=== PATIENT | female | born 1975 | race Hispanic/Latino ===

== ENCOUNTER 2018-01-08 11:04 | Emergency (ER) | payer SELFPAY ==
[~2018-01-08] VITALS: Ht 162.6 cm; Wt 127.0 kg
[2018-01-08] MEDS ORDERED: MORPHINE SULFATE 2 MG/ML SYR IV NR (11:15)
[2018-01-08] MEDS ORDERED: ONDANSETRON HCL INJ 2 MG/ML VIAL IV NR (11:15)
[2018-01-08] MEDS ORDERED: SODIUM CHLORIDE 0.9% 1000ML 1,000 ML IV STA (11:16)
[2018-01-08 11:30] LABS: BASOPHILS # (AUTO) 0.1 (0.0-0.1); BASOPHILS % 0.5 % (0.0-1.0); EOSINOPHILS # (AUTO) 0.1 (0.0-0.4); HEMATOCRIT 42.1 % (34.2-44.1); HEMOGLOBIN 13.5 g/dL (12.0-16.0); LYMPHOCYTES # (AUTO) 1.7 (1.0-3.2); LYMPHOCYTES % 12.9 % (18.0-39.1); MEAN CORPUSCULAR HEMOGLOBIN 27.3 pg (28-32); MEAN CORPUSCULAR HGB CONC 32.1 g/dL (31-35); MEAN CORPUSCULAR VOLUME 85.1 fL (81-99); MONOCYTES % 7.3 % (4.4-11.3); NEUTROPHILS # (AUTO) 10.2 (2.1-6.9); PLATELET COUNT 91 x10e3/uL (140-360); RED BLOOD COUNT 4.95 x10e6/uL (3.6-5.1); RED CELL DISTRIBUTION WIDTH 14.6 % (11.7-14.4)
[2018-01-08 11:33] LABS: CLARITY,URINE SL CLOUDY (CLEAR); COLOR,URINE ORANGE (YELLOW); LEUKOCYTE ESTERASE ,URINE 1+ (NEGATIVE)
[2018-01-08 11:34] LABS: KETONES,URINE NEGATIVE (NEGATIVE); NITRITE,URINE POSITIVE (NEGATIVE); PROTEIN,URINE DIPSTICK 2+ (NEGATIVE)
[2018-01-08 11:36] LABS: BILIRUBIN,URINE NEGATIVE (NEGATIVE); PREGNANCY TEST, URINE NEGATIVE (NEGATIVE); URINE UROBILINOGEN 1 mg/dL (0.2 - 1)
[2018-01-08 11:52] LABS: ALBUMIN 3.6 g/dL (3.5-5.0); ALBUMIN/GLOBULIN RATIO 0.8 (0.8-2.0); CALCIUM 9.8 mg/dL (8.4-10.2); CREATININE, SERUM 1.04 mg/dL (0.57-1.11)
[2018-01-08] MEDS ORDERED: CEFTRIAXONE SOD 1 GM VIAL IM ONE (12:00)
[2018-01-08 12:04] LABS: RBC,URINE 21-50 /HPF (0-5); WBC,URINE (MAN) 21-50 /HPF (0-5)
[2018-01-08 12:05] LABS: BACTERIA,URINE MODERATE /HPF; EPITHELIAL CELLS,URINE FEW /LPF; MUCUS,URINE FEW (RARE)
[2018-01-08] MEDS ORDERED: KETOROLAC30 MG/1 M1 IV (12:07)
[2018-01-08] MEDS ORDERED: KETOROLAC TROMETHAMINE 30 MG/ML VIAL IV STA (12:22)
--- NOTE | 2018-01-08 14:36 | Diagnostic Imaging Report ---
EXAM: CT Abdomen and Pelvis WITHOUT contrast INDICATION: \S\back pain \[id number] \S\1320 COMPARISON: None. TECHNIQUE: Abdomen and pelvis were scanned utilizing a multidetector helical scanner from the lung base to the pubic symphysis without administration of IV contrast. Absence of intravenous contrast decreases sensitivity for detection of focal lesions and vascular pathology. Coronal and sagittal reformations were obtained. Routine protocol was performed. IV CONTRAST: None ORAL CONTRAST: Water COMPLICATIONS: None RADIATION DOSE: Total DLP: 892.6 mGy*cm Estimated effective dose: (DLP x 0.015 x size factor) mSv CTDIvol has been reviewed. It is below the limits set by the Radiation Protocol Committee (RPC). FINDINGS: LINES and TUBES: None. LOWER THORAX: Unremarkable HEPATOBILIARY: Hepatic steatosis. Liver is enlarged measuring 20 cm in length and the mid right clavicular line. No focal hepatic lesions. No biliary ductal dilation. GALLBLADDER: Absent SPLEEN: No splenomegaly. PANCREAS: No focal masses or ductal dilatation. ADRENALS: No adrenal nodules KIDNEYS/URETERS: No hydronephrosis. No cystic or solid mass lesions. Punctate nonobstructing left inferior pole calculus. GI TRACT: No abnormal distention, wall thickening, or evidence of bowel obstruction. Appendix is normal. PELVIC ORGANS/BLADDER: Hysterectomy.Left ovarian 2.6 cm fluid attenuating lesion likely representing a cyst. Unremarkable bladder. LYMPH NODES: No lymphadenopathy. VESSELS: Unremarkable. PERITONEUM / RETROPERITONEUM: No free air or fluid. BONES: There are degenerative changes in the lumbar spine, worse at L5-S1. SOFT TISSUES: Fat-containing supraumbilical hernia with 6.9 x 3.5 x 11.7 cm sac. Neck measures 2 x 3.5 cm and located approximately 7 cm above the umbilicus. Tiny fat-containing umbilical hernia. No fluid or stranding to suggest strangulation. IMPRESSION: 1. No acute abnormalities in the abdomen and pelvis. 2. Hepatic steatosis and hepatomegaly. 3. Left nephrolithiasis. 4. Large fat containing supraumbilical ventral hernia. Signed by: DR. Felix Lowe MD on 01/08/2018 2:32 PM
[2018-01-08] MEDS ORDERED: KEFLEX500 MG PO (15:18)
[2018-01-08] MEDS ORDERED: ULTRAM50 MG PO (15:47)
[2018-01-08] MEDS ORDERED: PYRIDIUM100 MG PO (15:49)
[2018-01-09] MEDS ORDERED: SODIUM CHLORIDE 0.9% 1000ML 1,000 ML IV STA (11:16)
== END 2018-01-08 16:00 | disposition home or self-care (01) ==
LOC: ER 11:21
DX: R30.0 Dysuria (principal); N30.91 Cystitis, unspecified with hematuria
CPT/HCPCS: 36415; 74176; 80053; 81001; 81025; 83605; 85025; 87040; 99284; J0696; J1885; J2270; J2405; J7030

== ENCOUNTER 2018-03-08 18:28 | Emergency (ER) | payer OTHER ==
[~2018-03-08] VITALS: Ht 165.1 cm; Wt 127.0 kg
[~2018-03-08 18:28] MED LIST: KEFLEX500 MG PO; KETOROLAC30 MG/1 M1 IV; PYRIDIUM100 MG PO; ULTRAM50 MG PO
--- OUTSIDE RECORDS SUMMARY | 2018-03-08 18:31 | XMS REPORT ---
Author Author Admin, [place] Organization [facility] Address Unknown Phone Unavailable Allergies, Adverse Reactions, Alerts Allergy Name Reaction Description Start Date Severity Status Provider ASPIRIN Moderate Active Brian Clark MD SULFA Severe Active Brian Clark MD PENICILLIN Severe Active Brian Clark MD Conditions or Problems Problem Name Problem Code Onset Date Status Entry Date Provider Comment Standard Description Annotate Vision changes 368.9 Active Brian Clark MD Unspecified visual disturbance Cough 786.2 Active Brian Clark MD Cough Peripheral neuropathy 356.9 Active Brian Clark MD Unspecified hereditary and idiopathic peripheral neuropathy Dermatitis 692.9 Active Brian Clark MD Contact dermatitis and other eczema, unspecified cause Heat rash 705.1 Active Brian Clark MD Prickly heat Medication List Medication Instructions Start Date Stop Date Generic Name NDC Status Provider Patient Instruction CHERATUSSIN AC 100-10 MG/5ML ORAL SYRUP 2 teaspoons (10mL) by mouth at bedtime as needed for cough GUAIFENESIN-CODEINE 21477467562 Active Brian Clark MD Active GABAPENTIN 300 MG ORAL CAPSULE 1 cap by mouth at bedtime GABAPENTIN 24102187262 Active Brian Clark MD Active TRIAMCINOLONE ACETONIDE 0.1 % EXTERNAL CREAM apply to affected area three times a day as needed for itching and red rash TRIAMCINOLONE ACETONIDE 84617135759 Active Brian Clark MD Active Vital Signs Date Name Value Unit Range Description blood pressure, diastolic, second observation 85 mm[Hg] BP healy blood pressure, diastolic 91 mm[Hg] BP healy blood pressure, systolic, second observation 127 mm[Hg] BP sys blood pressure, systolic 132 mm[Hg] BP sys height E&M 65 [in_us] Bdy height pulse rate E&M 85 /min Heart rate respiratory rate E&M 18 /min Resp rate temperature E&M 97.9 [degF] Body temperature weight E&M 245.25 [lb_av] Weight Measured blood pressure, diastolic 80 mm[Hg] BP healy blood pressure, systolic 127 mm[Hg] BP sys height E&M 65 [in_us] Bdy height pulse rate E&M 106 /min Heart rate respiratory rate E&M 18 /min Resp rate temperature E&M 97.8 [degF] Body temperature weight E&M 284.13 [lb_av] Weight Measured blood pressure, diastolic 89 mm[Hg] BP healy blood pressure, systolic 137 mm[Hg] BP sys height E&M 65 [in_us] Bdy height pulse rate E&M 102 /min Heart rate respiratory rate E&M 18 /min Resp rate temperature E&M 98.3 [degF] Body temperature weight E&M 272 [lb_av] Weight Measured blood pressure, diastolic 82 mm[Hg] BP healy blood pressure, systolic 121 mm[Hg] BP sys height E&M 65 [in_us] Bdy height pulse rate E&M 107 /min Heart rate respiratory rate E&M 18 /min Resp rate temperature E&M 98.4 [degF] Body temperature weight E&M 272.13 [lb_av] Weight Measured blood pressure, diastolic 89 mm[Hg] BP healy blood pressure, systolic 130 mm[Hg] BP sys height E&M 65 [in_us] Bdy height pulse rate E&M 89 /min Heart rate respiratory rate E&M 18 /min Resp rate temperature E&M 98 [degF] Body temperature weight E&M 278.50 [lb_av] Weight Measured Encounters Date Encounter Provider Code Facility 11:36:11 CDT Est Patient Exp Problem - 45404 Brian Clark MD CPT-47202 [facility] 11:26:11 SERVICE MANAGER Est Patient Exp Problem - 29281 Brian Clark MD CPT-04521 [facility] 09:28:28 CDT Est Patient Exp Problem - 81767 Brian Clark MD CPT-61519 [facility] 15:23:03 CDT Est Patient Exp Problem - 91418 Brian Clark MD CPT-74618 [facility] 11:07:06 CDT Est Patient Exp Problem - 50238 Brian Clark MD CPT-83139 [facility]
--- OUTSIDE RECORDS SUMMARY | 2018-03-08 18:31 | XMS REPORT ---
Author Author [facility] Address Unknown Phone Unavailable Care Team Providers Care Orthotist Prosthetist Name Role Phone Valerie SANTOS Unavailable Unavailable Problems This patient has no known problems. Allergies, Adverse Reactions, Alerts This patient has no known allergies or adverse reactions. Medications This patient has no known medications. Results Test Description Test Time Test Comments Text Results Atomic Results Result Comments CT ABDOMEN/PELVIS WO 2018-01-08 14:06:00 [place] [id number] Patient Name: REMA HARRY MR #: [id number] : 1975 Age/Sex: 42/F Req #: [id number] Adm Physician: Ordered by: IVETH SANTOS MD Report #: [id number] Location: ER Room/Bed: Procedure: [id number] CT/CT ABDOMEN/PELVIS WO Exam Date: 01/08/18 Exam Time: 1320 REPORT STATUS: Signed EXAM: CT Abdomen and Pelvis WITHOUT contrast INDICATION: COMPARISON: None. TECHNIQUE: Abdomen and pelvis were scanned utilizing a multidetector helical scanner from the lung base to the pubic symphysis without administration of IV contrast. Absence of intravenous contrast decreases sensitivity for detection of focal lesions and vascular pathology. Coronal and sagittal reformations were obtained. Routine protocol was performed. IV CONTRAST: None ORAL CONTRAST: Water COMPLICATIONS: None RADIATION DOSE: Total DLP: 892.6 mGy*cm Estimated effective dose: (DLP x 0.015 x size factor) mSv CTDIvol has been reviewed. It is below the limits set by the Radiation Protocol Committee (RPC). FINDINGS: LINES and TUBES: None. LOWER THORAX: U nremarkable HEPATOBILIARY: Hepatic steatosis. Liver is enlarged measuring 20 cm in length and the mid right clavicular line. No focal hepatic lesions. No biliary ductal dilation. GALLBLADDER: Absent SPLEEN: No splenomegaly. PANCREAS: No focal masses or ductal dilatation. ADRENALS: No adrenal nodules KIDNEYS/URETERS: No hydronephrosis. No cystic or solid mass lesions. Punctate nonobstructing left inferior pole calculus. GI TRACT: No abnormal distention, wall thickening, or evidence of bowel obstruction. Appendix is normal. PELVIC ORGANS/BLADDER: Hysterectomy.Left ovarian 2.6 cm fluid attenuating lesion likely representing a cyst. Unremarkable bladder. LYMPH NODES: No lymphadenopathy. VESSELS: Unremarkable. PERITONEUM / RETROPERITONEUM: No free air or fluid. BONES: There are degenerative changes in the lumbar spine, worse at L5-S1. SOFT TISSUES: Fat-containing supraumbilical hernia with 6.9 x 3.5 x 11.7 cm sac. Neck measures 2 x 3.5 cm and located approximately 7 cm above the umbilicus. Tiny fat-containing umbilical hernia. No fluid or stranding to suggest strangulation. IMPRESSION: 1. No acute abnormalities in the abdomen and pelvis. 2. Hepatic steatosis and hepatomegaly. 3. Left nephrolithiasis. 4. Large fat containing supraumbilical ventral hernia. Signed by: DR. Felix Krueger MD on 01/08/2018 2:32 PM Dictated By: FELIX KRUEGER MD 1432 Transcribed By: BENJY on 01/08/18 1432 COPY TO: IVETH SANTOS MD
--- NOTE | 2018-03-08 21:56 | Diagnostic Imaging Report ---
EXAMINATION: Head CT without contrast. HISTORY:Dizziness and nausea. COMPARISON:None. TECHNIQUE: Multidetector axial images were obtained from the foramen magnum to the vertex without contrast. The images were reconstructed using brain and bone algorithms. Thin section brain images were reformatted into coronal and sagittal planes. Dose modulation, iterative reconstruction, and/or weight based adjustment of the mA/kV was utilized to reduce the radiation dose to as low as reasonably achievable. Intravenous contrast: None IMAGE QUALITY: Acceptable. FINDINGS: Skull/scalp: No lytic or blastic. lesions. No surgical changes. Parenchyma: No abnormal density. No acute hemorrhage, mass or acute major vascular territorial infarct. Arteries: No density suggestive of thrombosis. Dural sinuses: No abnormal density suggestive of thrombosis. Ventricles: No hydrocephalus or displacement. Extra-axial spaces: No abnormal density. Brain volume: Normal for age. Craniocervical junction: No mass, Chiari malformation, or basilar invagination. Sella: No mass. Paranasal/mastoid sinuses: Imaged portions unremarkable. IMPRESSION: No intracranial abnormality. Signed by: Dr. Opal Moncada M.D. on 03/08/2018 9:53 PM
[2018-03-08] MEDS ORDERED: ONDANSETRON HCL INJ 2 MG/ML VIAL IV STA (22:49)
[2018-03-08] MEDS ORDERED: MECLIZINE HCL 12.5 MG TAB PO ONE (23:00)
[2018-03-08] MEDS ORDERED: SODIUM CHLORIDE 0.9% 1000ML 1,000 ML IV ONE (23:00)
[2018-03-09 00:21] LABS: BASOPHILS # (AUTO) 0.1 (0.0-0.1); BASOPHILS % 0.5 % (0.0-1.0); EOSINOPHILS # (AUTO) 0.1 (0.0-0.4); EOSINOPHILS % 0.6 % (0.0-6.0); MEAN CORPUSCULAR HGB CONC 32.5 g/dL (31-35); RED CELL DISTRIBUTION WIDTH 14.6 % (11.7-14.4)
[2018-03-09 01:16] LABS: ALANINE AMINOTRANSFERASE 22 IU/L (0-55); ALBUMIN 3.9 g/dL (3.5-5.0); ALBUMIN/GLOBULIN RATIO 0.8 (0.8-2.0); ALKALINE PHOSPHATASE 93 IU/L (40-150); ANION GAP 16.9 mmol/L (8-16); BLOOD UREA NITROGEN 10 mg/dL (7-26); BUN/CREATININE RATIO 11 (6-25); CALCIUM 10.3 mg/dL (8.4-10.2); CARBON DIOXIDE 23 mmol/L (22-29); CHLORIDE 104 mmol/L (98-107); CREATINE KINASE 76 IU/L (29-168); CREATININE, SERUM 0.94 mg/dL (0.57-1.11); EST GLOMERULAR FILTRATION RATE > 60 ML/MIN (60-); GLUCOSE 98 mg/dL (74-118); POTASSIUM 3.9 mmol/L (3.5-5.1); SODIUM 140 mmol/L (136-145)
--- NOTE | 2018-03-09 01:26 | Diagnostic Imaging Report ---
CHEST SINGLE (PORTABLE), 03/08/2018 10:49 PM Technique: CHEST SINGLE (PORTABLE) Comparison: None available. Clinical history: Cough Findings: Limited by single portable view and soft tissue attenuation. Normal cardiomediastinal silhouette for technique. No consolidation or edema. No effusion or pneumothorax. Impression: 1. Lines/Tubes: None 2. No acute abnormality. Signed by: Dr Wen Rudd MD on 03/09/2018 1:22 AM
[2018-03-09 01:39] LABS: HEMATOCRIT 42.1 % (34.2-44.1); HEMOGLOBIN 13.7 g/dL (12.0-16.0); LYMPHOCYTES # (AUTO) 2.8 (1.0-3.2); LYMPHOCYTES % 21.2 % (18.0-39.1); MEAN CORPUSCULAR VOLUME 82.9 fL (81-99); MONOCYTES # (AUTO) 0.7 (0.2-0.8); MONOCYTES % 5.4 % (4.4-11.3); NEUTROPHILS # (AUTO) 9.4 (2.1-6.9); PLATELET COUNT 76 x10e3/uL (140-360); RED BLOOD COUNT 5.08 x10e6/uL (3.6-5.1)
[2018-03-09 02:19] LABS: BILIRUBIN,URINE NEGATIVE (NEGATIVE); CLARITY,URINE HAZY (CLEAR); COLOR,URINE YELLOW (YELLOW); KETONES,URINE NEGATIVE (NEGATIVE); LEUKOCYTE ESTERASE ,URINE NEGATIVE (NEGATIVE); NITRITE,URINE NEGATIVE (NEGATIVE); PROTEIN,URINE DIPSTICK NEGATIVE (NEGATIVE); URINE UROBILINOGEN 0.2 mg/dL (0.2 - 1)
[2018-03-09 02:31] LABS: BACTERIA,URINE MANY /HPF; EPITHELIAL CELLS,URINE MANY /LPF; RBC,URINE 0-5 /HPF (0-5); WBC,URINE (MAN) 0-5 /HPF (0-5)
[2018-03-09 02:34] VITALS: BP 170/90
== END 2018-03-09 02:45 | disposition home or self-care (01) ==
LOC: ER 18:28
DX: H81.11 Benign paroxysmal vertigo, right ear (principal); E78.5 Hyperlipidemia, unspecified; M19.90 Unspecified osteoarthritis, unspecified site; D69.3 Immune thrombocytopenic purpura; Z88.6 Allergy status to analgesic agent; Z88.0 Allergy status to penicillin; Z88.2 Allergy status to sulfonamides
CPT/HCPCS: 36415; 70450; 71045; 80053; 81001; 82550; 82553; 84484; 85025; 93005; 99284; J2405; J7030